=== PATIENT | male | born 1945 | race Caucasian/White ===

== ENCOUNTER 2017-04-26 13:53 | Emergency (ER) | payer MEDICARE ==
[~2017-04-26] VITALS: Ht 165.1 cm; Wt 84.4 kg
[2017-04-26 14:04] VITALS: BP 133/100; PULSE 59; RESP 16; TEMP 98.4; O2SAT 96
[2017-04-26] MEDS ORDERED: SIMV40TA PO (14:20)
[2017-04-26] MEDS ORDERED: HYDR12.56 PO (14:20)
[2017-04-26] MEDS ORDERED: GABA300C5 PO (14:20)
[2017-04-26] MEDS ORDERED: METO50TA PO (14:20)
[2017-04-26] MEDS ORDERED: FINA1TAB16 (14:20)
--- NOTE | 2017-04-26 14:38 | PD ---
HPI Chief Complaint: Fall Time Seen by Provider: 14:17 Travel History International Travel<30 days: No Contact w/Intl Traveler<30days: No Traveled to known affect area: No History of Present Illness HPI Patient comes to the emergency department at the advice of his primary care doctor to have x-rays done of his hip per patient. Patient reports that 2 weeks ago he lost his balance falling landing on all fours causing the pain. Patient describes pain is irritation without radiation. Patient denies doing anything for this. Denies anything making symptoms better. Pain is worse with walking. Patient reports he has had vertigo over the past 4 years ever since having surgery spinal cord causing him to fall frequently. Patient denies any fevers, change in bowel or bladder, numbness or tingling, or IV drug use. 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) Influenza Vaccination: Yes ?: Not Past Surgical History Eye Surgery: Yes (bilat cataract) Joint Replacement: Yes (Bilat Hip) Social History Alcohol Use: No Tobacco Use: No Substance Use: No Allergies-Medications (Allergen,Severity, Reaction): Coded Allergies: No Known Allergies (Unverified , 04/26/17) Reported Meds & Prescriptions Reported Meds & Active Scripts Active Reported Finasteride (Finasteride (Alopecia)) 1 Mg Tab Simvastatin 40 Mg Tab 40 Mg PO HS Metoprolol Tartrate 50 Mg Tab 50 Mg PO BID Hydrochlorothiazide 12.5 Mg Tab 12.5 Mg PO DAILY Gabapentin 300 Mg Cap 300 Mg PO TID Review of Systems Except as stated in HPI: all other systems reviewed are Neg Physical Exam Narrative GENERAL: Well-developed, overly nourished, in no acute distress, and non-ill appearing. SKIN: Focused skin assessment warm and dry. HEAD: Atraumatic. Normocephalic. EYES: Pupils equal and round. EOMI. No scleral icterus. No injection or drainage. ENT: No nasal bleeding or discharge. Mucous membranes pink and moist. NECK: Trachea midline. Supple. No nuclear rigidity. CARDIOVASCULAR: Dorsal pulses 2+, intact, and equal bilaterally. Capillary refill less than 2 seconds. RESPIRATORY: No accessory muscle use. No respiratory distress. MUSCULOSKELETAL: No obvious deformities. No clubbing. No cyanosis. No edema. Full range of motion. Hip: FROM and equal BL with passive flexion, extension, Abduction, Adduction, and internal/external rotation. Pulses equal BL distal to injury. Capillary refill less than 2 seconds distal to injury and equal BL. FROM distal to injury and equal BL. Strength distal to injury equal BL. NV intact distal to injury and equal BL. Plantar flexion and dorsal flexion equal BL. Dorsal pulses equal BL. Sensation equal BL 1st web space. NEUROLOGICAL: Awake and alert. No obvious cranial nerve deficits. Motor grossly within normal limits. Normal speech. PSYCHIATRIC: Appropriate mood and affect; insight and judgment normal. Data Data Last Documented VS Vital Signs Date Time Temp Pulse Resp B/P (MAP) Pulse Ox O2 Delivery O2 Flow Rate FiO2 04/26/17 14:04 98.4 59 16 133/100 (111) 96 Orders Orders Pelvis, Ap Only (Routine) (04/26/17 ) Femur (Ap & Lat/2vws) (04/26/17 ) Ed Discharge Order (04/26/17 15:39) MDM Medical Decision Making Medical Screen Exam Complete: Yes Emergency Medical Condition: Yes Interpretation(s) Last Impressions Pelvis X-Ray 04/26/17 0000 Signed Impressions: Service Date/Time: Wednesday, April 26, 2017 14:34 - CONCLUSION: 1. Bilateral hip arthroplasties in place. 2. No acute fracture or significant dislocation. Ramon Belcher MD Femur X-Ray 04/26/17 0000 Signed Impressions: Service Date/Time: Wednesday, April 26, 2017 14:34 - CONCLUSION: 1. No acute fracture of the femur identified. Felix Goodwin MD Differential Diagnosis Fracture, strain, contusion, dislocation, arthritis Narrative Course There is no clinical evidence to suspect bony injury by exam. Radiographic examination revealed no fracture seen at this time. The patient has full range of motion on active and passive motions. There is no significant edema. There is no proximal or distal joint effusion. The distal extremity appears neurovascularly intact, without evidence of neurovascular injury nor compartment syndrome. Tendon exam also was intact. The patient was discharged and given warnings for vascular compromise. The patient is to follow up with their regular physician or Orthopedics. The patient agrees with plan. Patient in no obvious distress upon re-evaluation. All pertinent Radiology result(s) discussed with patient. Any questions/concerns in reference to patient diagnosis/condition discussed and clarified prior to patient's discharge. Reinforced sheer importance of close follow up with patient's primary physician or primary care clinic. Instructed patient to return to ED immediately, if symptoms return/worsen. Patient showed understanding of above instructions. Further instructions and recommendations were detailed in discharge paperwork. Patient ambulated without difficulty out of ED at discharge. Diagnosis Primary Impression: Right hip pain Referrals: Ki Sánchez MD Patient Instructions: Arthralgia (ED), General Instructions, Hip Pain (ED) Additional Instructions: Follow-up with your primary care physician and/or orthopedics this week for reevaluation. Use [id number] Tylenol as needed for pain. Follow instructions on packaging. Return to the emergency department if symptoms get worse. Disposition: 01 DISCHARGE HOME Condition: Stable Hansel Sanchez Apr 26, 2017 14:38
--- NOTE | 2017-04-26 15:02 | RADRPT ---
EXAM DATE/TIME: 04/26/2017 14:34 [facility] COMPARISON: No previous studies available for comparison. INDICATIONS : Left hip pain after fall one week ago. MEDICAL HISTORY : No pertinent medical history. SURGICAL HISTORY : Bilateral hip replacements. ENCOUNTER: Initial ACUITY: 1 week PAIN SCORE: 8/10 LOCATION: Right hip. FINDINGS: The patient is post left hip arthroplasty. With the hardware is intact. No fracture of the left hip o r femur is identified. The soft tissues of the thigh are intact. CONCLUSION: 1. No acute fracture of the femur identified. Felix Goodwin MD on April 26, 2017 at 14:59 Board Certified Radiologist. This report was verified electronically.
--- NOTE | 2017-04-26 15:18 | RADRPT ---
EXAM DATE/TIME: 04/26/2017 14:34 [facility] COMPARISON: No previous studies available for comparison. INDICATIONS : Pain. Fall one week ago. MEDICAL HISTORY : No pertinent medical history SURGICAL HISTORY : Bilateral hip replacements. ENCOUNTER: Initial ACUITY: 1 week PAIN SCORE: 8/10 LOCATION: Bilateral pelvis. FINDINGS: A single frontal view of the pelvis demonstrates no evidence of fracture. There are bilateral hip ar throplasties. Visualiz arthroplasty components are intact without perihardware lucency. The bony pelv ic ring is intact. Bony mineralization is normal. The soft tissues are intact. CONCLUSION: 1. Bilateral hip arthroplasties in place. 2. No acute fracture or significant dislocation. Ramon Belcher MD on April 26, 2017 at 15:15 Board Certified Radiologist. This report was verified electronically.
== END 2017-04-26 15:55 | disposition home or self-care (01) ==
LOC: PHEFT 13:53
DX: M25.551 Pain in right hip (principal); W01.0XXA Fall on same level from slipping, tripping and stumbling without subsequent striking against object, initial encounter; I10 Essential (primary) hypertension; E78.00 Pure hypercholesterolemia, unspecified; I25.2 Old myocardial infarction; Z96.643 Presence of artificial hip joint, bilateral
CPT/HCPCS: 72170; 73552; 99283